=== PATIENT | male | born 1960 | race Caucasian/White ===

== ENCOUNTER 2018-02-17 17:17 | Emergency (ER) | payer BC, SELFPAY ==
[2018-02-17 17:29] VITALS: BP 126/73; PULSE 99; RESP 16; TEMP 38.7; O2SAT 95
--- NOTE | 2018-02-17 17:50 | DI.RAD_ITS ---
SYMPTOMS/DIAGNOSIS: COUGH PA AND LATERAL CHEST: There are no prior comparison exams. The heart size is normal. The lungs are mildly hyperinflated but appear clear. No infiltrate, effusion or pneumothorax is seen. No mass is identified. Surgical clips are seen in the upper abdomen. Degenerative changes are noted in the spine. IMPRESSION: Hyperinflation. No acute abnormality.
--- NOTE | 2018-02-17 18:21 | NUR.NOTE ---
Nursing Note: refused meds
--- NOTE | 2018-02-17 18:35 | DI.VRAD_ITS ---
EXAM: XR Chest, 2 Views EXAM DATE/TIME: 02/17/2018 5:50 PM CLINICAL HISTORY: 57 years old, male; Signs and symptoms; Cough; Patient HX: PT indicates weakness TECHNIQUE: XR of the chest, 2 views. COMPARISON: No relevant prior studies available. FINDINGS: No airspace consolidation, pleural effusion or pneumothorax. The cardiomediastinal silhouette is unremarkable. IMPRESSION: No acute findings. Dictated and Authenticated by: Kulwinder Maxwell MD. Ordering:TERA Miner MD
--- NOTE | 2018-02-17 18:49 | W.ED.GENAD ---
Discharge Plan Disposition Patient Disposition: HOME Condition: Fair Discharge Details Chief Complaint: GenMedical Clinical Impression: Influenza A Primary Care Provider: Sharath Shahid ED Provider: Isidra Wilhelm Home Meds and New Rx's Prescriptions: New oseltamivir [Tamiflu] 75 mg capsule 75 mg PO Q12H 5 Days Qty: 10 RF: 0 Continued omega 3,6,9 combination no.7 92 mg (43 mg-22 [id number]) tablet,chewable PO DAILY RF: 0 doxycycline hyclate 100 mg tablet 100 mg PO BID Qty: 14 RF: 0 codeine-guaifenesin 10-100 mg/5 mL liquid 10 ml PO Q6H PRN (Reason: severe cough) Qty: 100 RF: 1 benzonatate [Tessalon Perles] 100 mg capsule 100 mg PO QID PRN (Reason: cough) Qty: 20 RF: 0 ibuprofen [IBU] 600 mg tablet 600 mg PO TID Qty: 30 RF: 1 fluticasone 50 mcg/actuation spray,suspension 2 spray LONNIE DAILY Qty: 16 RF: 0 multivitamin [Daily Multiple] 1 EACH tablet 1 ea PO DAILY RF: 0 triamcinolone acetonide 15 GM cream 15 gm Topical PRN RF: 0 ascorbic acid (vitamin C) [Vitamin C] 500 MG tablet 500 mg PO DAILY RF: 0 epinephrine [EpiPen 2-Be] 0.3 MG/0.3 ML auto-injector 0.3 mg IM PRN RF: 0 fluticasone 16 GM spray,suspension 50 mcg NS PRN RF: 0 Discharge Instructions Instructions: H1N1 Influenza (ED) Additional Instructions: Encourage hydration. Tylenol and/or ibuprofen as needed for discomfort or fever. Please take doxycycline as prescribed by primary care. Tamiflu as prescribed for influenza. If you develop difficulty breathing, shortness of breath, inability to stay high or other new/worsening symptoms please seek care urgently once again. Please follow-up with primary care next week for reevaluation Wash hands frequently. Take care with who you are around as this is very contagious. Stand Alone Forms: Work Release Referrals: Sharath Shahid DO [Primary Care Provider] - Medical Decision Making Patient 57-year-old male, coming by his , with chief complaint of cough, sinus congestion, body aches, fevers and chills. Reports he has been ill since December 24, 2017. States that since then, he has had waxing and waning upper respiratory symptoms. Patient does report a [id number]-[id number] smoking history, states that he quit about 5 years ago. States that he began feeling ill acutely approximately 2 days ago. Denies any GI upset. Was seen by his PCP who was concerned for possible sinus infection and began on Doxycycline. They are also concerned for pneumonia and had requested the patient receive cxr. However, as the patient saw his PCP this afternoon, no availability for outpatient xr was available. He denies SOB or CP. On exam, lungs are clear. Patient appears fatigued and slightly dehydrated. Pulse is 99, patient's temp is 38.7. Primarily concern for influenza given his appearance. However, his primary care who referred him here for a chest x-ray, will also obtain a chest x-ray and rapid flu. Rapid flu is positive. Chest x-ray reviewed by radiologist as below: FINDINGS: No airspace consolidation, pleural effusion or pneumothorax. The cardiomediastinal silhouette is unremarkable. IMPRESSION: No acute findings. Discussed these findings with the patient and his . At this point, I advised that his acute illness seems to be driven from influenza. Unclear as to what is causing his chronic issues. Asked specifically about COPD change in the chest x-ray which were not noted by radiologist. However, we did discuss that he is at high risk for COPD given his smoking history. Encourage hydration. He would like to continue with the doxycycline as prescribed by his primary care provider today for his sinusitis. As the pharmacies are currently closed and he will not be able to pick this up, will give him his first dose here. Patient also be given his first dose of Tamiflu here. Patient is taking an oral medication here. I had initially prescribed Tylenol and ibuprofen to help with the fever but patient declined. Subsequently, the patient's gave him 600 mg of ibuprofen, this was given just prior to time of discharge. Patient remains febrile but prefers to take medications for this at home and is declining medications here. He is requesting first dose of Tamiflu and Doxycycline here as pharmacies are closing. We discussed new/worsening symtpoms and when to seek care urgently once again. All of his questions and concerns were addressed, he is in agreement with this plan. He will f/u with PCP. HPI General Mode of arrival: ambulatory. Date/Time Provider Initiated Documentation: 02/17/18 17:36. Limitations to Documentation: no limitations. Information obtained by: patient and family. History of Present Illness 57 year old M presents to the emergency department with the chief complaint of cough, described as moderate, with intensity rated at 6. Quality is described as aching (body aches), Patient started experiencing this day(s) (2) and it has been constant. No relieving factors improve symptom(s), No exacerbating factors reported . Patient notes cough, diaphoresis, fever/chills and loss of appetite; denies chest pain, headaches, malaise, nausea/vomiting, rash, shortness of breath and syncope. Patient did receive the following treatments prior to arrival, none Related Data Home Medications Medication Instructions Recorded Confirmed ascorbic acid (vitamin C) [Vitamin 500 mg PO DAILY 07/27/17 02/17/18 C] epinephrine [EpiPen 2-Be] 0.3 mg IM PRN 07/27/17 02/17/18 fluticasone 50 mcg NS PRN spray 07/27/17 02/17/18 multivitamin [Daily Multiple] 1 ea PO DAILY 07/27/17 02/17/18 triamcinolone acetonide 15 gm TOPICAL PRN script 07/27/17 02/17/18 omega 3,6,9 combination no.7 92 mg mg PO DAILY tab 11/23/17 02/17/18 (43 mg-22 [id number]) chew tablet benzonatate 100 mg capsule 100 mg PO QID PRN #20 cap 02/17/18 02/17/18 codeine 10 mg-guaifenesin 100 mg/5 10 ml PO Q6H PRN #100 ml 02/17/18 02/17/18 mL oral liquid doxycycline hyclate 100 mg tablet 100 mg PO BID #14 tab 02/17/18 02/17/18 fluticasone 50 mcg/actuation nasal 2 spray LONNIE DAILY #16 gm 02/17/18 02/17/18 spray,suspension ibuprofen 600 mg tablet 600 mg PO TID #30 tab 02/17/18 02/17/18 oseltamivir [Tamiflu] 75 mg PO Q12H 5 Days #10 cap 02/17/18 Previous Rx's Medication Instructions Recorded benzonatate 100 mg capsule 100 mg PO QID PRN #20 cap 02/17/18 codeine 10 mg-guaifenesin 100 mg/5 10 ml PO Q6H PRN #100 ml 02/17/18 mL oral liquid doxycycline hyclate 100 mg tablet 100 mg PO BID #14 tab 02/17/18 fluticasone 50 mcg/actuation nasal 2 spray LONNIE DAILY #16 gm 02/17/18 spray,suspension ibuprofen 600 mg tablet 600 mg PO TID #30 tab 02/17/18 oseltamivir [Tamiflu] 75 mg PO Q12H 5 Days #10 cap 02/17/18 Allergies Allergy/AdvReac Type Severity Reaction Status Date / Time hydromorphone HCl Allergy Intermediate Itching Verified 01/25/18 11:11 [From Dilaudid] General Stated Complaint: GenMedical NANDO: 3 Review of Systems Constitutional Reports as per HPI and Denies headache(s) Eyes Reports as per HPI, Denies eye discharge and Denies irritation ENT Reports as per HPI, Reports otalgia, Denies headache(s), Reports nasal congestion, Reports nasal discharge, Reports sinus pain, Reports sinus pressure and Reports sore throat Cardiovascular Reports as per HPI, Denies chest pain and Denies dyspnea Respiratory Reports chest congestion, Reports cough, Denies hemoptysis, Denies dyspnea, Denies stridor and Denies wheezing Gastrointestinal Reports as per HPI, Denies abdominal pain, Denies change in bowel habits, Denies nausea and Denies vomiting Integumentary/Breasts Reports as per HPI and Denies rash Neurologic Denies headache(s) Allergic/Immunologic Denies wheezing [facility] Medical History nephrolithiasis Surgical History Cholecystectomy Family History Mother No problems noted. Father A-fib Sister No problems noted. Brother No problems noted. Brother No problems noted. Social History household members: spouse lives independently: Yes current occupational status: employed current occupation: [employer] Smoking/Tobacco Use Status: Former Tobacco Use alcohol intake: never substance use type: does not use seatbelt use: always Exam Const General: cooperative, healthy appearing, comfortable, no acute distress, well developed and well groomed Nutritional Appearance: average body habitus and well nourished Orientation: alert and awake [facility] Head: normal to inspection, normocephalic and atraumatic Ears: hearing grossly normal bilaterally, external ears normal and TM's normal bilaterally General nose exam: external nose normal and nares normal Face and sinus: normal facial exam, sinuses nontender and face symmetric Mouth: oral mucosae normal, lip normal, tongue normal, oropharynx normal and moist mucous membranes Teeth and gingiva: dentition normal Throat: posterior oropharynx normal, tonsils normal and uvula midline Eyes General: appearance normal, both eyes and all related structures Neck Neck: normal visual inspection, full ROM, no lymphadenopathy and no meningeal signs Resp Effort & Inspection: normal respiratory effort, able to speak in complete sentences and no respiratory distress Auscultation: clear to auscultation bilaterally, no rales, no rhonchi and no wheezes Cardio Rate: regular rate Rhythm: regular rhythm Heart Sounds: S1 normal and S2 normal Skin General skin exam: no rashes or lesions noted Neuro General: alert and awake Cognition: normal cognition Speech: speech normal Gait: normal gait Psych Appearance: grossly normal and well kempt Mental Status: mental status grossly normal Speech and Movement: speech and movement normal Course Vital Signs Temperature 38.7 C H 02/17/18 17:29 Pulse 99 H 02/17/18 17:29 Respiratory Rate 16 02/17/18 17:29 Blood Pressure 126/73 02/17/18 17:29 Pulse Oximetry 95 02/17/18 17:29 Temperature 38.7 C H 02/17/18 17:29 Pulse 99 H 02/17/18 17:29 Respiratory Rate 16 02/17/18 17:29 Blood Pressure 126/73 02/17/18 17:29 Blood Pressure Position Sitting 02/17/18 17:29 Pulse Oximetry 95 02/17/18 17:29 Oxygen Delivery Method Room Air 02/17/18 17:29 Oxygen Flow Rate 0 02/17/18 17:29 Pain Level 6 02/17/18 17:29 Lab/Test Results Lab/Test Results: 02/17/18 17:32 Nasopharynx Influenza Types A,B Antigen - Final
[2018-02-17 18:50] VITALS: BP 109/63; PULSE 92; RESP 18; TEMP 38.8; O2SAT 99
[2018-02-17 18:53] VITALS: RESP 18
--- NOTE | 2018-02-17 18:53 | ED.GENADUL_ITS ---
Discharge Plan Disposition Patient Disposition: HOME Condition: Fair Discharge Details Chief Complaint: GenMedical Clinical Impression: Influenza A Primary Care Provider: Sharath Shahid ED Provider: Isidra Wilhelm Home Meds and New Rx's Prescriptions: New oseltamivir [Tamiflu] 75 mg capsule 75 mg PO Q12H 5 Days Qty: 10 RF: 0 Continued omega 3,6,9 combination no.7 92 mg (43 mg-22 [id number]) tablet,chewable PO DAILY RF: 0 doxycycline hyclate 100 mg tablet 100 mg PO BID Qty: 14 RF: 0 codeine-guaifenesin 10-100 mg/5 mL liquid 10 ml PO Q6H PRN (Reason: severe cough) Qty: 100 RF: 1 benzonatate [Tessalon Perles] 100 mg capsule 100 mg PO QID PRN (Reason: cough) Qty: 20 RF: 0 ibuprofen [IBU] 600 mg tablet 600 mg PO TID Qty: 30 RF: 1 fluticasone 50 mcg/actuation spray,suspension 2 spray LONNIE DAILY Qty: 16 RF: 0 multivitamin [Daily Multiple] 1 EACH tablet 1 ea PO DAILY RF: 0 triamcinolone acetonide 15 GM cream 15 gm Topical PRN RF: 0 ascorbic acid (vitamin C) [Vitamin C] 500 MG tablet 500 mg PO DAILY RF: 0 epinephrine [EpiPen 2-Be] 0.3 MG/0.3 ML auto-injector 0.3 mg IM PRN RF: 0 fluticasone 16 GM spray,suspension 50 mcg NS PRN RF: 0 Discharge Instructions Instructions: H1N1 Influenza (ED) Additional Instructions: Encourage hydration. Tylenol and/or ibuprofen as needed for discomfort or fever. Please take doxycycline as prescribed by primary care. Tamiflu as prescribed for influenza. If you develop difficulty breathing, shortness of breath, inability to stay high or other new/worsening symptoms please seek care urgently once again. Please follow-up with primary care next week for reevaluation Wash hands frequently. Take care with who you are around as this is very contagious. Stand Alone Forms: Work Release Referrals: Sharath Shahid DO [Primary Care Provider] - Medical Decision Making Patient 57-year-old male, coming by his , with chief complaint of cough, sinus congestion, body aches, fevers and chills. Reports he has been ill since December 24, 2017. States that since then, he has had waxing and waning upper respiratory symptoms. Patient does report a [id number]-[id number] smoking history, states that he quit about 5 years ago. States that he began feeling ill acutely approximately 2 days ago. Denies any GI upset. Was seen by his PCP who was concerned for possible sinus infection and began on Doxycycline. They are also concerned for pneumonia and had requested the patient receive cxr. However, as the patient saw his PCP this afternoon, no availability for outpatient xr was available. He denies SOB or CP. On exam, lungs are clear. Patient appears fatigued and slightly dehydrated. Pulse is 99, patient's temp is 38.7. Primarily concern for influenza given his appearance. However, his primary care who referred him here for a chest x-ray, will also obtain a chest x-ray and rapid flu. Rapid flu is positive. Chest x-ray reviewed by radiologist as below: FINDINGS: No airspace consolidation, pleural effusion or pneumothorax. The cardiomediastinal silhouette is unremarkable. IMPRESSION: No acute findings. Discussed these findings with the patient and his . At this point, I advised that his acute illness seems to be driven from influenza. Unclear as to what is causing his chronic issues. Asked specifically about COPD change in the chest x-ray which were not noted by radiologist. However, we did discuss that he is at high risk for COPD given his smoking history. Encourage hydration. He would like to continue with the doxycycline as prescribed by his primary care provider today for his sinusitis. As the pharmacies are currently closed and he will not be able to pick this up, will give him his first dose here. Patient also be given his first dose of Tamiflu here. Patient is taking an oral medication here. I had initially prescribed Tylenol and ibuprofen to help with the fever but patient declined. Subsequently, the patient's gave him 600 mg of ibuprofen, this was given just prior to time of discharge. Patient remains febrile but prefers to take medications for this at home and is declining medications here. He is requesting first dose of Tamiflu and Doxycycline here as pharmacies are closing. We discussed new/worsening symtpoms and when to seek care urgently once again. All of his questions and concerns were addressed, he is in agreement with this plan. He will f/u with PCP. HPI General Mode of arrival: ambulatory . Date/Time Provider Initiated Documentation: 02/17/18 17:36 . Limitations to Documentation: no limitations . Information obtained by: patient and family . History of Present Illness 57 year old M presents to the emergency department with the chief complaint of cough, described as moderate, with intensity rated at 6. Quality is described as aching (body aches), Patient started experiencing this day(s) (2) and it has been constant. No relieving factors improve symptom(s), No exacerbating factors reported . Patient notes cough, diaphoresis, fever/chills and loss of appetite; denies chest pain, headaches, malaise, nausea/vomiting, rash, shortness of breath and syncope. Patient did receive the following treatments prior to arrival, none Related Data Home Medications Medication Instructions Recorded Confirmed ascorbic acid (vitamin C) [Vitamin 500 mg PO DAILY 07/27/17 02/17/18 C] epinephrine [EpiPen 2-Be] 0.3 mg IM PRN 07/27/17 02/17/18 fluticasone 50 mcg NS PRN spray 07/27/17 02/17/18 multivitamin [Daily Multiple] 1 ea PO DAILY 07/27/17 02/17/18 triamcinolone acetonide 15 gm TOPICAL PRN script 07/27/17 02/17/18 omega 3,6,9 combination no.7 92 mg mg PO DAILY tab 11/23/17 02/17/18 (43 mg-22 [id number]) chew tablet benzonatate 100 mg capsule 100 mg PO QID PRN #20 cap 02/17/18 02/17/18 codeine 10 mg-guaifenesin 100 mg/5 10 ml PO Q6H PRN #100 ml 02/17/18 02/17/18 mL oral liquid doxycycline hyclate 100 mg tablet 100 mg PO BID #14 tab 02/17/18 02/17/18 fluticasone 50 mcg/actuation nasal 2 spray LONNIE DAILY #16 gm 02/17/18 02/17/18 spray,suspension ibuprofen 600 mg tablet 600 mg PO TID #30 tab 02/17/18 02/17/18 oseltamivir [Tamiflu] 75 mg PO Q12H 5 Days #10 cap 02/17/18 Previous Rx's Medication Instructions Recorded benzonatate 100 mg capsule 100 mg PO QID PRN #20 cap 02/17/18 codeine 10 mg-guaifenesin 100 mg/5 10 ml PO Q6H PRN #100 ml 02/17/18 mL oral liquid doxycycline hyclate 100 mg tablet 100 mg PO BID #14 tab 02/17/18 fluticasone 50 mcg/actuation nasal 2 spray LONNIE DAILY #16 gm 02/17/18 spray,suspension ibuprofen 600 mg tablet 600 mg PO TID #30 tab 02/17/18 oseltamivir [Tamiflu] 75 mg PO Q12H 5 Days #10 cap 02/17/18 Allergies Allergy/AdvReac Type Severity Reaction Status Date / Time hydromorphone HCl Allergy Intermediate Itching Verified 01/25/18 11:11 [From Dilaudid] General Stated Complaint: GenMedical NANDO: 3 Review of Systems Constitutional Reports as per HPI and Denies headache(s) Eyes Reports as per HPI, Denies eye discharge and Denies irritation ENT Reports as per HPI, Reports otalgia, Denies headache(s), Reports nasal congestion, Reports nasal discharge, Reports sinus pain, Reports sinus pressure and Reports sore throat Cardiovascular Reports as per HPI, Denies chest pain and Denies dyspnea Respiratory Reports chest congestion, Reports cough, Denies hemoptysis, Denies dyspnea, Denies stridor and Denies wheezing Gastrointestinal Reports as per HPI, Denies abdominal pain, Denies change in bowel habits, Denies nausea and Denies vomiting Integumentary/Breasts Reports as per HPI and Denies rash Neurologic Denies headache(s) Allergic/Immunologic Denies wheezing [facility] Medical History nephrolithiasis Surgical History Cholecystectomy Family History Mother No problems noted. Father A-fib Sister No problems noted. Brother No problems noted. Brother No problems noted. Social History household members: spouse lives independently: Yes current occupational status: employed current occupation: [employer] Manager Smoking/Tobacco Use Status: Former Tobacco Use alcohol intake: never substance use type: does not use seatbelt use: always Exam Const General: cooperative, healthy appearing, comfortable, no acute distress, well developed and well groomed Nutritional Appearance: average body habitus and well nourished Orientation: alert and awake [facility] Head: normal to inspection, normocephalic and atraumatic Ears: hearing grossly normal bilaterally, external ears normal and TM's normal bilaterally General nose exam: external nose normal and nares normal Face and sinus: normal facial exam, sinuses nontender and face symmetric Mouth: oral mucosae normal, lip normal, tongue normal, oropharynx normal and moist mucous membranes Teeth and gingiva: dentition normal Throat: posterior oropharynx normal, tonsils normal and uvula midline Eyes General: appearance normal, both eyes and all related structures Neck Neck: normal visual inspection, full ROM, no lymphadenopathy and no meningeal signs Resp Effort & Inspection: normal respiratory effort, able to speak in complete sentences and no respiratory distress Auscultation: clear to auscultation bilaterally, no rales, no rhonchi and no wheezes Cardio Rate: regular rate Rhythm: regular rhythm Heart Sounds: S1 normal and S2 normal Skin General skin exam: no rashes or lesions noted Neuro General: alert and awake Cognition: normal cognition Speech: speech normal Gait: normal gait Psych Appearance: grossly normal and well kempt Mental Status: mental status grossly normal Speech and Movement: speech and movement normal Course Vital Signs Temperature 38.7 C H 02/17/18 17:29 Pulse 99 H 02/17/18 17:29 Respiratory Rate 16 02/17/18 17:29 Blood Pressure 126/73 02/17/18 17:29 Pulse Oximetry 95 02/17/18 17:29 Temperature 38.7 C H 02/17/18 17:29 Pulse 99 H 02/17/18 17:29 Respiratory Rate 16 02/17/18 17:29 Blood Pressure 126/73 02/17/18 17:29 Blood Pressure Position Sitting 02/17/18 17:29 Pulse Oximetry 95 02/17/18 17:29 Oxygen Delivery Method Room Air 02/17/18 17:29 Oxygen Flow Rate 0 02/17/18 17:29 Pain Level 6 02/17/18 17:29 Lab/Test Results Lab/Test Results: 02/17/18 17:32 Nasopharynx Influenza Types A,B Antigen - Final
[2018-02-17] MEDS: Oseltamivir 75 MG CAP PO (19:01)
[2018-02-17] MEDS: Acetaminophen 500 MG TAB 1000 MG PO (19:01)
[2018-02-17] MEDS: Doxycycline Hyclate 100 MG CAP PO (19:01)
[2018-02-17 19:15] VITALS: BP 110/70; PULSE 90; RESP 22; TEMP 39.5; O2SAT 99
== END 2018-02-17 19:18 | disposition home or self-care (01) ==
PROVIDERS: Emergency Provider Physician Assistant; PCP Family Medicine
DX: J10.1 Influenza due to other identified influenza virus with other respiratory manifestations (principal)
CPT/HCPCS: 87449; 99283; 71046

== ENCOUNTER 2018-05-25 14:52 | Outpatient (CLI) | payer BC, SELFPAY ==
[2018-05-25 15:27] LABS: HGB 14.2 g/dL (13.5-17.5); Mean Corpuscular Volume 90.7 fL (80-95); Mean Platelet Volume 9.5 fL (8.0-11.0); Platelet Count 224 x1000/uL (130-400); RBC 4.74 m/cumm (4.50-6.00); RBC Distribution Width 13.9 % (11.8-14.1)
[2018-05-25 15:59] LABS: Iron 91 ug/dL (50-175); Total Iron Binding Capacity 322 ug/dL (250-450); Transferrin Sat 28 % (20-55)
[2018-05-25 16:01] LABS: ALT 35 U/L (12-78); AST 24 U/L (15-37); Albumin 3.9 g/dL (3.4-5.0); Alkaline Phosphatase 106 U/L (46-116); Anion Gap 9.3 mmol/L (3-11); BUN 24 mg/dL (7-18); Bilirubin, Total 0.3 mg/dL (0.2-1.0); CO2 26.7 mmol/L (21.0-32.0); CREATININE 0.95 mg/dL (0.70-1.30); Calcium 9.4 mg/dL (8.5-10.1); Chloride 103 mmol/L (98-107); Cholesterol 169 mg/dL (50-200); Glucose 82 mg/dL (70-100); HDL Cholesterol 60 mg/dL (40-60); LDL CHOLESTEROL 96 mg/dL (<100); Potassium 4.3 mmol/L (3.5-5.1); Sodium 139 mmol/L (136-145); Total Protein 7.4 g/dL (6.4-8.2); Triglyceride 78 mg/dL (30-150)
[2018-05-25 16:31] LABS: TSH (W/Ref FT4) 0.64 uIU/mL (0.358-3.74); Vitamin B12 853 pg/mL (193-986)
[2018-05-26 12:55] LABS: Hepatitis C Ab w Rflx HCV PCR Negative (NEGAT)
== END 2018-05-25 15:12 ==
PROVIDERS: PCP Family Medicine; Visit Provider Family Medicine
DX: R53.83 Other fatigue (principal); Z13.220 Encounter for screening for lipoid disorders; Z11.59 Encounter for screening for other viral diseases
CPT/HCPCS: 36415; 80053; 80061; 83721; 85027; 86803; 82607; 83540; 83550; 84443

== ENCOUNTER 2018-05-25 14:54 | Outpatient (REF) | payer BC, SELFPAY | END 2018-05-25 15:14 | LOC: LBN 14:54 | PROVIDERS: PCP Family Medicine; Visit Provider Internal Medicine | DX: J42 Unspecified chronic bronchitis (principal) | CPT/HCPCS: 87077; 87070; 87205 ==

== ENCOUNTER 2018-12-20 14:52 | Outpatient (CLI) | payer BC, SELFPAY ==
--- NOTE | 2018-12-20 12:25 | DI.RAD_ITS ---
EXAM: XR CHEST 2V PA LATERAL INDICATION: Cough and rhonchi on exam J40. COMPARISON: XR CHEST 2V PA LATERAL from 02/17/2018 TECHNIQUE: 2D digital imaging was performed. FINDINGS: The heart and pulmonary vasculature are within normal limits. The lungs are clear. The lungs are hyperinflated with flattened diaphragms most consistent with COPD. No effusions or pneumothoraces are identified. Degenerative changes are seen in the spine. IMPRESSION: No acute pulmonary process.
== END 2018-12-20 15:12 ==
PROVIDERS: PCP Family Medicine; Visit Provider Family Medicine
DX: R05 Cough (principal); J98.8 Other specified respiratory disorders; J40 Bronchitis, not specified as acute or chronic; J44.9 Chronic obstructive pulmonary disease, unspecified
CPT/HCPCS: 71046

== ENCOUNTER 2019-01-05 01:43 | Outpatient (CLI) | payer BC, SELFPAY ==
[2019-01-05] MEDS: Inhaler, Assist Device 1 EACH MC (11:46)
[2019-01-05] MEDS: Albuterol HFA 18 GM 200 PUFF INH IH (11:47)
--- NOTE | 2019-01-05 12:14 | PFT_ITS ---
PULMONARY FUNCTION TEST REPORT DATE OF SERVICE: January 05, 2019 REQUESTING PROVIDER: Sharath Shahid D.O. Spirometry shows very severe obstructive airways disease with significant bronchodilator response. Lung volumes show no evidence of restriction. There is moderate hyperinflation and air trapping. Diffusion capacity severely reduced, even when corrected to alveolar volume. Airways resistance elevated. IMPRESSION: Very severe obstructive airways disease with significant bronchodilator response. This is associated with moderate hyperinflation and air trapping and severe diffusion defect. Clinical correlation recommended. JEANNIE/landry D/
== END 2019-01-05 02:03 ==
PROVIDERS: PCP Family Medicine; Visit Provider Family Medicine
DX: R05 Cough (principal); R06.09 Other forms of dyspnea; Z87.891 Personal history of nicotine dependence
CPT/HCPCS: 94060; 94150; 94726; 94729

== ENCOUNTER 2019-04-05 11:22 | Outpatient (REF) | payer BC, SELFPAY | END 2019-04-05 11:42 | LOC: LBN 11:22 | PROVIDERS: PCP Family Medicine; Visit Provider Family Medicine | DX: J18.9 Pneumonia, unspecified organism (principal) | CPT/HCPCS: 87449 ==

== ENCOUNTER 2019-04-11 16:22 | Outpatient (REF) | payer BC, SELFPAY ==
[2019-04-12 19:26] LABS: Legionella Ag Detection Urine Negative (Negative)
== END 2019-04-11 16:42 ==
LOC: LBN 16:22
PROVIDERS: PCP Family Medicine; Visit Provider Family Medicine
DX: J18.9 Pneumonia, unspecified organism (principal)
CPT/HCPCS: 87449

== ENCOUNTER 2019-05-03 12:50 | Outpatient (CLI) | payer BC, SELFPAY ==
--- NOTE | 2019-05-03 03:04 | DI.CT_ITS ---
EXAM: CT CHEST W CLINICAL HISTORY: KNOWN PNEUMONIA, R/O UNDERLYING MASS TECHNIQUE: CT examination of the chest was performed with a bolus infusion of 70 cc of Omnipaque 350 . COMPARISON: XR CHEST 2V PA LATERAL from 02/17/2018 XR CHEST 2V PA LATERAL from 12/20/2018 XR CHEST 2VW (D) from 04/04/2019 FINDINGS: Images obtained through the upper abdomen show unremarkable appearance of visualized portions of the liver, spleen, pancreas, adrenals, and kidneys. Note is made of a prior cholecystectomy. There is severe predominantly central lobular emphysema. There is no mediastinal or hilar adenopathy. No evidence of pulmonary embolic disease or other major vascular abnormality of the mediastinum. No pleural effusion seen. Tracheobronchial tree appears inta ct. There are linear radiodensities in the right lung base consistent with scarring. There is some volum e loss of the left lower lobe with a pleural-based mass-like radiodensity noted at the posterior pleu ral surface measuring up to about 6 x 3 cm in diameter with irregular border. IMPRESSION: The findings as described may represent an area of consolidation and/or atelectasis. The patient had a patchy area of consolidation seen in this area on prior chest film of April 04. The possibil ity of underlying pulmonary neoplasm is not excluded on the basis of this examination. I would sugge st that a follow-up chest CT be obtained following treatment and if the findings do not resolve promp tly additional evaluation with PET-CT or tissue sampling should be considered.
[2019-05-03 12:42] LABS: CREATININE 1.03 mg/dL (0.70-1.30)
[2019-05-03] MEDS: Omnipaque 350 MG/ML 100 ML BTL IJ (13:17)
== END 2019-05-03 13:10 ==
PROVIDERS: PCP Family Medicine; Visit Provider Family Medicine
DX: J18.9 Pneumonia, unspecified organism (principal); J43.8 Other emphysema; J98.4 Other disorders of lung
CPT/HCPCS: 71260; 82565; J3490

== ENCOUNTER 2020-04-03 19:14 | Outpatient (REF) | payer BC, SELFPAY ==
[2020-04-04 14:47] LABS: COVID-19 RT-PCR UVMMC Result Negative (Negative)
== END 2020-04-03 19:15 | disposition home or self-care (01) ==
LOC: LBN 19:14
PROVIDERS: PCP Family Medicine; Visit Provider Physician Assistant
DX: Z20.822 Contact with and (suspected) exposure to COVID-19 (principal); J02.9 Acute pharyngitis, unspecified
CPT/HCPCS: U0003; 87070

== ENCOUNTER 2020-09-07 13:28 | Outpatient (CLI) | payer BC, SELFPAY ==
--- NOTE | 2020-09-07 13:15 | DI.RAD_ITS ---
Exam(s) XR CHEST 2V PA LATERAL EXAM: XR CHEST 2V PA LATERAL CLINICAL HISTORY: Dyspnea in context emphysema,R06.00;Fvjem-[id number] deficiency,E88.01 TECHNIQUE: 2D digital imaging was performed. COMPARISON: CR XR CHEST 2V PA LATERAL from 12/20/2018 FINDINGS: MEDIASTINUM: Normal. HEART: Normal. PULMONARY VASCULATURE: Normal. LUNGS: Clear. The lungs are hyperinflated with flattened diaphragms consistent with underlying COPD. PLEURAL SPACE: No pleural effusion or pneumothorax. BONE:Within normal limits for the patient's age. OTHER FINDINGS:Normal. IMPRESSION: No acute pulmonary findings. DATA REPOSITORY: RADIATION DOSE DELIVERED:
--- OUTSIDE RECORDS SUMMARY | 2020-09-07 13:33 | XMS_ITS ---
:1960 External Reference #:[id number] Author Care Team Providers Name Role Phone Clarenceparker Primary Care Provider Unavailable Allergies None recorded. Medications Name Status Start Date Stop Date ? ? amoxicillin 875 mg-potassium clavulanate Active ? Not available 125 mg tablet Anoro Ellipta 62.5 mcg-25 mcg/actuation Active ? Not available powder for inhalation azithromycin 250 mg tablet Active ? Not a vailable doxycycline hyclate 100 mg capsule Active ? Not available doxycycline hyclate 100 mg tablet Active ? Not available epinephrine 0.3 mg/0.3 mL injection, Active ? Not available auto-injector Flovent HFA 110 mcg/actuation aerosol Active ? Not available inhaler fluticasone propionate 50 mcg/actuation Active ? Not available nasal spray,suspension Guaiatussin AC 10 mg-100 mg/5 mL oral Active ? Not available liquid levofloxacin 500 mg tablet Active ? Not a vailable montelukast 10 mg tablet Active ? Not rachel ilable mupirocin 2 % topical ointment Active ? N ot available prednisone 20 mg tablet Active ? Not avai lable sulfamethoxazole 800 mg-trimethoprim 160 Active ? Not available mg tablet Symbicort 160 mcg-4.5 mcg/actuation HFA Active ? Not available aerosol inhaler triamcinolone acetonide 0.025 % topical Active ? Not available cream triamcinolone acetonide 0.1 % topical Active ? Not available cream valacyclovir 500 mg tablet Active ? Not a vailable Ventolin HFA 90 mcg/actuation aerosol Active ? Not available inhaler Problems Name Status Onset Date Source ? Staphylococcal Infection of Skin Active 06/20/2019 ? Spasm Active 06/20/2019 ? Eruption Active 06/20/2019 ? Increased Frequency of Urination Active 06/20/2019 ? Pneumonia Active 06/29/2019 ? Pulmonary Emphysema Active 06/29/2019 ? Procedures None recorded. Results Lab Results None recorded. Past Encounters 11/02/2019 [id number]-[id number]-Oxbzuolrsrb Deficiency Madonna Greene, [place]: [address] [facility], [place] [address], Ph. 07/26/2019 Pulmonary Emphysema; Pruritic Rash; Nanda min D Deficiency Madonna Greene, [place]: [address] [facility], [place] [address], Ph. [phone] 06/22/2019 Eruption; Pulmonary Emphysema Madonna Greene, [place]: [address] [place] [address], [place] [address], Ph. 06/09/2019 Spasm; Increased Frequency of Urination; Eruption Madonna Greene, [place]: [address] [place] [address], [place] [address], Ph. 05/05/2019 Pulmonary Emphysema; Pneumonia Madonna Greene, [place]: [address] [place] [address], [place] [address], Ph. Social History None recorded. Vaccine List None recorded. Plan of Care Patient Instructions 1. Sacro B- 2 cap 3xday- 10days 2, cream base on legs and back and shoul ders as needed 3. hot and cold- showers repeat 7-10 christi es 1. Magnesium K+ taurate 1 cap in am and mag taurate only at night 2. Immune support- vit C increase during fall months 3. Skin and microflora support : megaspo re switch with therbitoic 4. Vitamin D 2000iu/day- and 20 minutes a day in sun retest in November for winter dosage 5 rash returns get bloodwork- otherwise add on to Vit D in fall 1. viracon 1 cap 3xday for 1 month when finish with Prescription drug antiviral- 2. Broncheze-go back on 1 cap 2xday 3. rub st. J wort oil with licorice and green tea in cream based- 4. Vitamin C- 2000mg 3xday 5. Zinc- 30mg 1 cap 3xday for 2 weeks th en 1 cap/day 1. Broncheze 1 cap 3xday for mainte nacne 2. pulmonolgy visit reports sent to me 3. Smoothies at night packed with nutrie nts -no dairy 4. Hydration in non gatorade electrolyte drink( I suggest using the [employer] brand- ) 5. take potassium magnesium taurate pill s 1 cap 2xday for 1 week then decrease to 1 cap /day 6. Megasporebiotics-instructions on dani le rotate with ther-biotics drink tea before 6:30 not close to bedti me so you do not urinate more than once/night if you are going to bathroom every 2 erna rs during the day you are probably well hydrated and need more potassium/magnesium and/or folate/b12 I prefer to get lab values on you for these first if possible . it will not hurt you to take b12/folat e for several days if you have on hand to see if reduced leg/muscle cramps- 1. We discussed his is getting tested-dt emphysema and immunocompromise dont advise he get tested unless she is postive 2. Broncheaze 2 caps 3xday check Bp ever y 1-2 weeks on this 3. Return to office to discuss bronchial health and if pneumonia has resolved Other herbal support for repiratory heal th can be given but will use only BRoncheaze at this time. PLease Follow up in 2-3 weeks via telemedcine Reminders Provider Appointments None recorded. ? ? Lab None recorded. ? ? Referral None recorded. ? ? Procedures None recorded. ? ? Surgeries None recorded. ? ? Imaging None recorded. ? ? Vitals 07/26/2019 09:00AM ESTABLISHED PATIENT 43 Height Weight BMI Blood Pressure 5 ft 11.5 in 160 lbs 22 kg/m2 104/70 mm[Hg] 05/05/2019 09:30AM NEW PATIENT 58 Height Weight BMI Blood Pressure 5 ft 11.5 in 160 lbs 22 kg/m2 (1) 130/87 mm[H g] (2) 122/88 mm[Hg ]
--- OUTSIDE RECORDS SUMMARY | 2020-09-07 13:33 | XMS_ITS ---
:1960 Author Care Team Providers Name Role Phone MAXX GLORIARAUL ([employer] [facility]) Primary Care Provi mary alice [phone] ELAINE DARLING ND OTHER [phone] ROSANNA HATCH MD [employer] Crewmember [phone] KELLY ADAIR MD Nursing Manager Unavailable DASH SIMMONS MD Nursing Manager [phone] Allergies Code Code System Name Reaction Severity Status Onset Bee Venom Anaphylaxis ? Active ? Protein (Honey Bee) 708209 RxNorm House Dust ? ? Active ? Medications Name Status Start Date Stop Date ? ? Albuterol Sulfate HFA 90 mcg/Actuation aerosol inhaler Active ? Not available Inhale 2 puffs every 6 hours by inhalation route as needed. amoxicillin 500 mg capsule Completed 12/04/200912/14 1 (one) Cap: three times a day amoxicillin 875 mg-potassium Completed ? 05/2019 clavulanate 125 mg tablet Anoro Ellipta 62.5 mcg-25 mcg/actuation powder for inhalation Ac tive ? Not available INHALE 1 PUFF BY MOUTH ONCE DAILY azithromycin 250 mg tablet Completed ? 10/05 Bactrim DS 800 mg-160 mg tablet Active ? Not available Take 1 tablet every 12 hours by oral route for 10 days. benzonatate 200 mg capsule Completed 04/18/201503/03 1 (one) Capsule Capsule: three times daily, as needed Celebrex 200 mg capsule Completed 08/06/2011 08/06/19 12 1 (one) Capsule: daily cephalexin 500 mg capsule Active ? Not av ailable 1 Capsule 4 times per day for 10 days cephalexin 500 mg tablet Completed 01/28/2017 018 1 Tablet: 3 times a day doxycycline hyclate 100 mg Completed ? 10/05 capsule doxycycline hyclate 100 mg tablet Active ? Not available TAKE ONE TABLET BY MOUTH TWICE A DAY epinephrine 0.3 mg/0.3 mL injection, auto-injector Active ? Not available Take as needed by injection route. Flovent HFA 110 mcg/actuation aerosol inhaler Active ? Not available INHALE TWO PUFFS BY MOUTH TWICE A DAY fluticasone propionate 50 Active ? Not av ailable mcg/actuation nasal spray,suspension garlic Active ? Not available 1 qd garlic oil 1,000 mg capsule Completed 03/23/200801/10 1 (one) Capsule: daily Guaiatussin AC 10 mg-100 mg/5 Completed ? mL oral liquid hydrocodone 5 mg-acetaminophen 325 mg tablet Completed 07/201212/15/2012 1-2 Tablet: every four to six hours as needed hydromorphone 2 mg tablet Completed 12/15/20122012 1 Tablet: every four hours, as needed ibuprofen 600 mg tablet Active ? Not avai lable TAKE ONE TABLET BY MOUTH THREE TIMES A DAY ibuprofen 800 mg tablet Completed 12/15/2012 12/16/19 13 1 Tablet: every eight hours as needed indomethacin 50 mg capsule Completed 08/07/201612/26 1 (one) Capsule Capsule: bid - twice daily as needed Levaquin 750 mg tablet Completed 01/14/2017 7 1 (one) Tablet: qd - daily levofloxacin 500 mg tablet Active ? Not a vailable 1 (one) Tablet Tablet: qd - daily Lidocaine Viscous 2 % mucosal solution Completed 4 02/28/2014 1 (one) teaspoon: three times daily, as needed montelukast 10 mg tablet Active ? Not rachel ilable TAKE ONE TABLET BY MOUTH EVERY DAY IN THE EVENING multivitamin Active ? Not available mupirocin 2 % topical ointment Active ? N ot available APPLY TWO TIMES A DAY TO LESIONS ON BACK Nicoderm CQ 14 mg/24 hr daily transdermal patch Completed 02/06/2014 02/20/2014 1 (one) Patch 24HR: daily Nicoderm CQ 21 mg/24 hr daily transdermal patch Completed 02/06/2014 08/15/2014 1 (one) Patch 24HR Patch 24HR: daily Nicoderm CQ 7 mg/24 hr daily transdermal patch Completed 1 02/20/2014 1 (one) Patch 24HR: daily omega 3,6,9 combination no.7 92 mg (43 mg-22 [id number]) chew tablet Active ? Not available Take every day by oral route. [place] 3-6-9 Active ? Not available 1 qd omeprazole 20 mg capsule,delayed release Completed 012 12/15/[address]: daily prednisone 20 mg tablet Active ? Not avai lable 2 tablets Tablet: qd - daily for 5 days prednisone 50 mg tablet Completed 01/28/2017 02/16/19 18 1 Tablet: daily Probiotic Active ? Not available 1 qd Prolastin-C 1,000 mg (+/-)/20 Active ? N ot available mL intravenous solution Protonix 40 mg tablet,delayed release Completed 12/11/2008 12/11/2008 1 (one) Tablet DR: daily Symbicort 160 mcg-4.5 Completed ? 10/06/2019 mcg/actuation HFA aerosol inhaler tamsulosin 0.4 mg capsule Completed 06/18/20162016 1 Capsule Capsule: daily Tessalon Perles 100 mg capsule Completed 02/06/2014 0 02/28/2014 1 (one) Capsule: at bedtime, as needed triamcinolone acetonide 0.025 % Active ? Not available topical cream triamcinolone acetonide 0.1 % Active ? No t available topical cream valacyclovir 500 mg tablet Active ? Not a vailable Ventolin HFA 90 mcg/actuation Active ? No t available aerosol inhaler Vitamin C 500 mg tablet Active ? Not avai lable Take every day by oral route. Vitamins B Complex tablet Completed 03/23/20082013 1 (one) Tablet: daily Zofran 4 mg tablet Completed 12/15/2012 12/15/2012 1 Tablet: every 12 hours as needed Problems Name Status Onset Date Source ? Congestion of Nasal Sinus Unknown 06/16/2019 ? Pneumonia Active 06/16/2019 ? Pulmonary Emphysema Active 06/16/2019 ? Chronic Obstructive Lung Disease Active 06/16/2019 ? Fever with Chills Active 06/16/2019 ? Methicillin Resistant Staphylococcus Active ? History Aureus Infection Herpes Simplex Active ? History Gout Active ? History Nicotine Dependence Active ? History Acute Sinusitis Active ? History Acute Maxillary Sinusitis Active ? Histor y Acute Ethmoidal Sinusitis Active ? Histor y Pharyngitis Active ? History Sinusitis Active ? History Tracheobronchitis Active ? History Chronic Constipation Active ? History Urinary Tract Obstruction Active ? Histor y Hyperplasia of Prostate Active ? History Actinic Keratosis Active ? History Backache Active ? History Dyspnea Active ? History Cough Active ? History Lower Urinary Tract Symptoms Active ? His tory Imaging of Gastrointestinal Tract Active ? History Abnormal Adult Health Examination Active ? History Allergy to Insect Protein Active ? Histor y Benign Lipomatous Tumor Active ? History Procedure by Method Active ? History Cellulitis of Left Upper Limb Active ? Hi story Procedures Date Name Performed by ? 02/09/1979 Cholecystectomy Information not avai lable ? Esophagogastroduodenoscopy Information n ot available Notes: Many years ago. ? Colonoscopy Information not avai lable ? Hernia Repair Information not avai lable Notes: [1970's] 06/16/2019 CT, Chest, W/o Contrast [facility] Radiology (Internal) [address] [place] [address] (Work Place) 07/14/2019 LDCT, Chest, for Lung Cancer Screening [facility] Radiology (Internal) [address] [place] [address] (Work Place) 10/26/2019 XR, Chest, 2 View [facility] Radiology (Internal) [address] [place] [address] (Work Place) Results Lab Results Date Name Specimen Result Interpretation Description Value Range Status Address ? 04/04/2020 CBC W/ BLD High Wbc 11.6 10*3/uL 5.0-10.0 Final [place] Auto Diff 10*3/uL [facility] L ab (Internal) : [address] ? ? BLD ? Rbc 5.38 10*6/uL 4.60-6.00 Final N orth 10*6/uL [facility] L ab (Internal) : [address] ? ? BLD ? Hgb 16.3 g/dL 14.0-18.0 Final Nort h g/dL [facility] L ab (Internal) : [address] ? ? BLD ? Hct 50.3 % 41.0-51.0 Final [facility] L ab (Internal) : [address] ? ? BLD ? Mcv 93.5 fL 80.0-96.0 Final [facility] (Internal) : [address] ? ? BLD ? Mch 30.3 pg 26.0-32.0 Final [facility] pg [facility] L [facility] (Internal) : [address] ? ? BLD ? Mchc 32.4 g/dL 31.0-35.0 Final Nort [facility] g/dL [facility] L [facility] (Internal) : [address] ? ? BLD ? Rdw 13.5 % 11.5-14.5 Final [facility] % [facility] (Internal) : [address] ? ? BLD ? Plt 218 10*3/uL 130-450 Final Nort h 10*3/uL [facility] L [facility] (Internal) : [address] 04/04/2020 BMP, Serum S ? g/r 89 mg/dL 74-106 Final [place] or Plasma mg/dL [facility] L [facility] (Internal) : [address] ? ? S High Bun 23 mg/dL 9-20 Final [place] mg/dL [facility] L [facility] (Internal) : [address] ? ? S ? Crea 0.90 mg/dL 0.66-1.25 Final Nor th mg/dL [facility] L [facility] (Internal) : [address] ? ? S ? Ca 9.6 mg/dL 8.4-10.2 Final [facility] mg/dL [facility] L [facility] (Internal) : [address] ? ? S ? Na 139 mmol/L 137-145 Final [facility] mmol/L [facility] L [facility] (Internal) : [address] ? ? S ? K 4.5 mmol/L 3.5-5.1 Final [facility] mmol/L [facility] L [facility] (Internal) : [address] t ? ? S ? Cl 101 mmol/L 98-107 Final [place] mmol/L [facility] L [facility] (Internal) : [address] ? ? S ? Tco2 29.0 mmol/L 22.0-30.0 Final No rth mmol/L [facility] L [facility] (Internal) : [address] 04/04/2020 CRP, High S High Rcrp 1.23 mg/dL 0.10-0.30 [facility] Sensitivit mg/dL Countr y y, Serum Hospital Lab or Plasma (Employee Adviser al): [address] 04/04/2020 Differenti BLD ? Polys 62 % 40-75 % Final N orth al, [place] Manual, Hospital Lab Blood (Internal) : [address] ? ? BLD ? Bands 0 % 0-5 % Final [facility] L ab (Internal) : [address] ? ? BLD ? Lymphs 27 % 20-50 % Final [facility] L ab (Internal) : [address] ? ? BLD ? Borden 7 % 2-10 % Final [facility] L ab (Internal) : [address] ? ? BLD ? Eos 3 % 0-6 % Final [facility] L ab (Internal) : [address] ? ? BLD ? Baso 1 % 0-1 % Final [facility] L ab (Internal) : [address] ? ? BLD ? Atyp 0 % ? Final [facility] L ab (Internal) : [address] ? ? BLD ? Plts, adequate adequate Final [facility] Hospital L ab (Internal) : [address] ? ? BLD ? RBC normal normal Final [place] Morpholog [facility] L ab (Internal) : [address] 04/04/2020 Neutrophil BLD ? Anc-manu 7.17 10*3/uL ? Final [place] Count, [facility] Absolute Hospital Lab (Anc), (Internal) : Blood [address] 04/04/2020 Nlr-manual BLD ? Nlr - 2.30 0.00-3.20 Final [facility] Hospital L ab (Internal) : [address] t 11/10/2019 Iga, S ? Iga 178 mg/dL 85-499 Final [facility] th Quantitati mg/dL Countr y ve, Serum Hospita l Lab (Internal) : [address] 10/25/2019 Culture, BLD ? Final microbiology ? Final [place] Blood 1 results [facility] Hospital L ab (Internal) : [address] 10/25/2019 Culture, BLD ? Final microbiology ? Final [place] Blood 2 results [facility] Hospital L ab (Internal) : [address] 10/25/2019 CBC W/ BLD CRITICAL Wbc 26.4 10*3/uL 5.0-10.0 Fin [facility] Auto Diff HIGH 10*3/uL [facility] L ab (Internal) : [address] ? ? BLD ? Rbc 4.77 10*6/uL 4.60-6.00 Final N orth 10*6/uL [facility] L ab (Internal) : [address] ? ? BLD ? Hgb 14.8 g/dL 14.0-18.0 Final Nort h g/dL [facility] L ab (Internal) : [address] ? ? BLD ? Hct 44.5 % 41.0-51.0 Final [facility] L ab (Internal) : [address] ? ? BLD ? Mcv 93.3 fL 80.0-96.0 Final [facility] L ab (Internal) : [address] ? ? BLD ? Mch 31.0 pg 26.0-32.0 Final [place] pg [facility] L ab (Internal) : [address] ? ? BLD ? Mchc 33.3 g/dL 31.0-35.0 Final Nort h g/dL [facility] L ab (Internal) : [address] ? ? BLD ? Rdw 13.4 % 11.5-14.5 Final [facility] L ab (Internal) : [address] ? ? BLD ? Plt 203 10*3/uL 130-450 Final Nort h 10*3/uL [facility] L ab (Internal) : [address] 10/25/2019 CMP, Serum S High g/r 123 mg/dL 74-106 Final [place] or Plasma mg/dL [facility] L ab (Internal) : [address] ? ? S High Bun 21 mg/dL 9-20 Final [place] mg/dL [facility] L ab (Internal) : [address] ? ? S ? Crea 0.90 mg/dL 0.66-1.25 Final Nor th mg/dL [facility] (Internal) : [address] ? ? S ? Ca 9.4 mg/dL 8.4-10.2 Final [facility] mg/dL [facility] (Internal) : [address] ? ? S Low Na 134 mmol/L 137-145 Final [facility] mmol/L [facility] (Internal) : [address] ? ? S ? K 4.5 mmol/L 3.5-5.1 Final [facility] mmol/L [facility] (Internal) : [address] ? ? S ? Cl 99 mmol/L 98-107 Final [facility] mmol/L [facility] (Internal) : [address] ? ? S ? Tco2 26.0 mmol/L 22.0-30.0 Final No rth mmol/L [facility] L [facility] (Internal) : [address] ? ? S ? Tp 7.3 g/dL 6.3-8.2 Final [facility] g/dL [facility] (Internal) : [address] ? ? S ? Alb 4.2 g/dL 3.5-5.0 Final [facility] g/dL [facility] (Internal) : [address] ? ? S ? Tbil 0.7 mg/dL 0.2-1.3 Final [facility] mg/dL [facility] (Internal) : [address] ? ? S ? Alp 88 U/L 38-126 Final [facility] U/L [facility] (Internal) : [address] ? ? S ? Alt 25 U/L 21-72 U/L Final [place] (Sgpt) [facility] (Internal) : [address] ? ? S ? Ast 27 U/L 17-59 U/L Final [place] (Sgot) [facility] Hospital L ab (Internal) : [address] 10/25/2019 EKG Done ? No ? ? ? Nort h by ED [facility] on Hospital L ab recorded. (Employee Adviser al): [address] 10/25/2019 Differenti BLD ? Polys 75 % 40-75 % Final N orth al, [place] [facility], Hospital Lab Blood (Internal) : [address] ? ? BLD ? Bands 2 % 0-5 % Final [facility] Hospital L ab (Internal) : [address] ? ? BLD Low Lymphs 7 % 20-50 % Final [facility] L ab (Internal) : [address] ? ? BLD High Borden 16 % 2-10 % Final [facility] Hospital L ab (Internal) : [address] ? ? BLD ? Eos 0 % 0-6 % Final [facility] L ab (Internal) : [address] ? ? BLD ? Baso 0 % 0-1 % Final [facility] Hospital L ab (Internal) : [address] ? ? BLD ? Atyp 0 % ? Final [facility] Hospital L ab (Internal) : [address] ? ? BLD ? Plts, adequate adequate Final [facility] Hospital L ab (Internal) : [address] ? ? BLD ? RBC normal normal Final [place] Morpholog [facility] y Hospital L ab (Internal) : [address] 10/25/2019 Neutrophil BLD ? Anc-manu 20.30 ? Final [place] Count, al 10*3/uL [facility] Absolute Hospital Lab (Anc), (Internal) : Blood [address] 10/25/2019 Nlr-manual BLD High Nlr - 11.00 0.00-3.20 Final [facility] Hospital L ab (Internal) : [address] 10/25/2019 Lactic S ? La 1.1 mmol/L 0.7-2.1 Final N orth Acid, mmol/L [facility] Blood Hospital L ab (Internal) : [address] 09/26/2019 Alpha-1-An S Low Alpha 1 <58 mg/dL 90-200 [facility] titrypsin Antitryps mg/dL Coun try (Aat), QN, in Hospit al Lab Serum (Internal) : [address] 09/21/2019 Hepatic S ? Tbil 0.5 mg/dL 0.2-1.3 Final N orth Function mg/dL [facility], Hospital L ab Serum (Internal) : [address] ? ? S ? Dbil 0.1 mg/dL 0.0-0.3 Final [place] mg/dL [facility] L ab (Internal) : [address] t ? ? S ? Alp 98 U/L 38-126 Final [place] U/L [facility] L ab (Internal) : [address] t ? ? S ? Alt 30 U/L 21-72 U/L Final [place] (Sgpt) [facility] L ab (Internal) : [address] t ? ? S ? Ast 35 U/L 17-59 U/L Final [place] (Sgot) [facility] L ab (Internal) : [address] t ? ? S ? Ggt 19 U/L 15-73 U/L Final [facility] L ab (Internal) : [address] t ? ? S ? Tp 7.6 g/dL 6.3-8.2 Final [place] g/dL [facility] L ab (Internal) : [address] t ? ? S ? Alb 4.3 g/dL 3.5-5.0 Final [place] g/dL [facility] L ab (Internal) : [address] t 08/16/2019 Methicilli NASAL ? Final microbiology ? Fin al North n results Country Resistant Hospita l Lab Staphyloco (Inter nal): ccus [address], [place] Culture, Nasal 08/01/2019 Alpha-1-An ? No ? ? ? titrypsin observati (Aat) on Phenotype, recorded. Serum 05/09/2017 Fungus, MISC ? Specimen (see note) ? Final [place] Culture, Descripti Count ry Unspecifie on Hospit al Lab d Specimen (Inter nal): [address] ? ? MISC ? Result (see note) ? Final [facility] L ab (Internal) : [address] ? ? MISC ? Report (see note) ? Final [facility] L ab (Internal) : [address] t 05/09/2017 Bacteria N/A ? Final microbiology ? Final [place] Identifica results Count ry tion, Hospital L ab Unspecifie (Inter nal): d Specimen [address] 05/09/2017 sensitivit MISC ? Sens* ? ? Final No rth ies[I] [facility] Hospital L ab (Internal) : [address] 02/04/2017 Venipunctu BLD ? Venpn* ? ? Final N orth re [facility] Hospital L ab (Internal) : [address] 02/04/2017 Neutrophil BLD ? Anc-manu 10.30 ? Final [place] Count, al 10*3/uL [facility] Lab (Anc), (Internal) : Blood [address] 02/04/2017 Differenti BLD High Polys 85 % 40-75 % Final N orth al, [facility] Manual, Hospital Lab Blood (Internal) : [address] ? ? BLD ? Bands 0 % 0-5 % Final [facility] Hospital L ab (Internal) : [address] ? ? BLD Low Lymphs 11 % 20-50 % Final [facility] Hospital L ab (Internal) : [address] ? ? BLD ? Borden 4 % 2-10 % Final [facility] Hospital L ab (Internal) : [address] ? ? BLD ? Eos 0 % 0-6 % Final [facility] Hospital L ab (Internal) : [address] ? ? BLD ? Baso 0 % 0-1 % Final [facility] Hospital L ab (Internal) : [address] ? ? BLD ? Atyp 0 % ? Final [facility] Hospital L ab (Internal) : [address] ? ? BLD ? Plts, adequate adequate Final [place] Est. [facility] Hospital L ab (Internal) : [address] ? ? BLD ? RBC normal normal Final [place] Morpholog [facility] (Internal[facility] : [address] 02/04/2017 CK S Low Cpk 44 U/L 55-170 Final [place] (Creatine U/L [facility] Kinase), Hospital Lab Total, (Internal) : Serum [address] 02/04/2017 BMP, Serum S ? g/r 99 mg/dL 74-106 Final [place] or Plasma mg/dL [facility] L [facility] (Internal) : [address] t ? ? S High Bun 21 mg/dL 9-20 Final [facility] mg/dL [facility] L [facility] (Internal) : [address] ? ? S ? Crea 0.80 mg/dL 0.66-1.25 Final Nor th mg/dL [facility] L [facility] (Internal) : [address] t ? ? S ? Ca 9.0 mg/dL 8.4-10.2 Final [facility] mg/dL [facility] (Internal) : [address] t ? ? S ? Na 138 mmol/L 137-145 Final [place] mmol/L [facility] Hospital L ab (Internal) : [address] t ? ? S ? K 4.2 mmol/L 3.5-5.1 Final [facility] mmol/L [facility] (Internal) : [address] t ? ? S ? Cl 103 mmol/L 98-107 Final [place] mmol/L [facility] Hospital L ab (Internal) : [address] ? ? S ? Tco2 26.0 mmol/L 22.0-30.0 Final No rth mmol/L [facility] (Internal) : [address] 02/04/2017 CBC W/ BLD High Wbc 12.1 10*3/uL 5.0-10.0 Final [place] Auto Diff 10*3/uL [facility] L ab (Internal) : [address] ? ? BLD ? Rbc 4.97 10*6/uL 4.60-6.00 Final N orth 10*6/uL [facility] (Internal) : [address] ? ? BLD ? Hgb 15.0 g/dL 14.0-18.0 Final Nort [facility] g/dL [facility] (Internal) : [address] ? ? BLD ? Hct 45.9 % 41.0-51.0 Final [facility] % [facility] (Internal) : [address] ? ? BLD ? Mcv 92.4 fL 80.0-96.0 Final [facility] Hospital L ab (Internal) : [address] ? ? BLD ? Mch 30.2 pg 26.0-32.0 Final [place] pg [facility] Hospital L ab (Internal) : [address] ? ? BLD ? Mchc 32.7 g/dL 31.0-35.0 Final Nort h g/dL [facility] Hospital L ab (Internal) : [address] ? ? BLD ? Rdw 13.5 % 11.5-14.5 Final [place] % [facility] L ab (Internal) : [address] ? ? BLD ? Plt 213 10*3/uL 130-450 Final Nort h 10*3/uL [facility] L ab (Internal) : [address] 12/26/2016 Streptococ THRT ? Final microbiology ? Fin al [place] cus Group results Countr y a, Hospital L ab Culture, (Interna l): Throat [address] 06/18/2016 Venipunctu BLD ? Venpn* ? ? Final N orth re [facility] L ab (Internal) : [address] 06/18/2016 PSA, Serum S ? PSA, 1.0 NG/mL 0.0-4.0 Final [place] or Plasma Total NG/mL [facility] L ab (Internal) : [address] Past Encounters 10/26/2019 Chronic Obstructive Lung Disease Kelly Adair MD: [address] [place] [address], Ph. 10/06/2019 Chronic Obstructive Lung Disease; Alpha- 1-Antitrypsin Deficiency Kelly Adair MD: [address] [place] [address], Ph. 08/01/2019 Chronic Obstructive Lung Disease; Alpha- 1-Antitrypsin Deficiency Kelly Adair MD: [address] [place] [address], Ph. 07/14/2019 Chronic Obstructive Lung Disease; Ex-smo ker Kelly Adair MD: [address] [place] [address], Ph. 06/16/2019 Tomography - Chest Abnormal; Chronic Obs tructive Lung Disease Kelly Adair MD: [address] [place] [address], Ph. Social History Tobacco Smoking Status Former Smoker Notes: quit Vaccine List Vaccine Type COVID-19, mRNA, LNP-S, PF, 100 mcg/0.5 m L dose 04/25/2020?0.5 mL 05/23/2020?100 mcg influenza, injectable, quadrivalent, pre servative free 01/11/2016?0.5 mL influenza, seasonal, injectable, preserv ative free 12/11/2010?0.5 mL pneumococcal polysaccharide PPV23 07/14/2019?0.5 mL Tdap 07/29/2018 Plan of Care Reminders Provider Appointments None ? ? recorded. Lab None ? ? recorded. Referral None ? ? recorded. Procedures None ? ? recorded. Surgeries None ? ? recorded. Imaging None ? ? recorded. Vitals 10/26/2019 10:30AM Follow Up 30 Height 176.53 cm 10/06/2019 01:00PM Follow Up 30 Height Weight BMI Blood Pressure 176.53 cm 71.8 kg 23 kg/m2 106/69 mm[Hg] 08/01/2019 02:30PM Follow Up 30 Height Weight BMI Blood Pressure 176.53 cm 72.4 kg 23.2 kg/m2 113/63 mm[Hg] 07/14/2019 09:00AM Follow Up 30 Height Weight BMI Blood Pressure 176.53 cm 73 kg 23.4 kg/m2 120/66 mm[Hg] 05/12/2017 Height Weight Blood Pressure 176.53 cm 72.94 kg 126/68 mm[Hg] 05/06/2017 Weight Blood Pressure 72.3 kg 112/76 mm[Hg] 01/28/2017 Blood Pressure 106/74 mm[Hg] 01/14/2017 Weight Blood Pressure 74.3 kg 120/86 mm[Hg] 12/26/2016 Blood Pressure 114/68 mm[Hg] 10/08/2016 Weight Blood Pressure 74.65 kg 106/72 mm[Hg] 08/07/2016 Blood Pressure 108/70 mm[Hg] 06/25/2016 Height Weight Blood Pressure 177.8 cm 74.84 kg 112/72 mm[Hg] 06/24/2016 Weight Blood Pressure 74.84 kg 112/72 mm[Hg] 06/18/2016 Weight Blood Pressure 74.45 kg 116/80 mm[Hg] 03/03/2016 Weight Blood Pressure 71.89 kg 104/62 mm[Hg] 06/25/2015 Weight Blood Pressure 73.48 kg 108/80 mm[Hg] 04/23/2015 Weight Blood Pressure 73.48 kg 108/80 mm[Hg] 04/18/2015 Weight Blood Pressure 74.07 kg 92/58 mm[Hg] 03/19/2015 Weight Blood Pressure 72.35 kg 110/64 mm[Hg] 10/30/2014 Weight Blood Pressure 69.9 kg 114/64 mm[Hg] 08/15/2014 Weight Blood Pressure 69.7 kg 112/70 mm[Hg] 04/10/2014 Weight Blood Pressure 70.81 kg 108/66 mm[Hg] 02/28/2014 Height Weight Blood Pressure 178 cm 67.65 kg 92/64 mm[Hg] 02/06/2014 Weight Blood Pressure 66.27 kg 104/68 mm[Hg] 10/27/2013 Weight Blood Pressure 66.32 kg 92/60 mm[Hg] 06/07/2013 Weight Blood Pressure 65.45 kg 86/50 mm[Hg] 03/29/2013 Height Weight Blood Pressure 177.8 cm 67.63 kg 132/90 mm[Hg] 12/15/2012 Height Weight Blood Pressure 177.8 cm 66.36 kg 106/70 mm[Hg] 06/11/2012 Height Weight Blood Pressure 180.34 cm 68.67 kg 114/72 mm[Hg] 02/02/2012 Weight Blood Pressure 70.17 kg 110/76 mm[Hg] 12/15/2011 Weight Blood Pressure 70.08 kg 102/62 mm[Hg] 08/29/2011 Height Weight Blood Pressure 180.34 cm 73.21 kg 130/80 mm[Hg] 08/06/2011 Height Weight Blood Pressure 180.34 cm 70.22 kg 108/80 mm[Hg] 08/01/2011 Height Weight Blood Pressure 180.34 cm 70.22 kg 104/64 mm[Hg] 03/25/2011 Weight Blood Pressure 68.63 kg 96/54 mm[Hg] 12/11/2010 Height Weight Blood Pressure 180.34 cm 68.54 kg 100/70 mm[Hg] 12/04/2009 Weight Blood Pressure 70.72 kg 124/80 mm[Hg] 02/20/2009 Weight Blood Pressure 73.94 kg 106/70 mm[Hg] 12/11/2008 Weight Blood Pressure 72.12 kg 104/80 mm[Hg] 09/27/2008 Weight Blood Pressure 73.03 kg 110/70 mm[Hg] 07/10/2008 Blood Pressure 110/60 mm[Hg] 06/09/2008 Height Weight Blood Pressure 182.88 cm 78.47 kg 110/66 mm[Hg] 03/27/2008 Height Weight Blood Pressure 182.88 cm 71.67 kg 112/66 mm[Hg]
== END 2020-09-07 13:48 ==
PROVIDERS: PCP Family Medicine; Visit Provider Family Medicine
DX: E88.01 Alpha-1-antitrypsin deficiency (principal); J43.9 Emphysema, unspecified
CPT/HCPCS: 71046

== ENCOUNTER 2020-11-05 16:03 | Outpatient (REF) | payer BC, SELFPAY ==
[2020-11-07 15:45] LABS: COVID-19 RT-PCR UVMMC Result Negative (Negative)
== END 2020-11-05 16:04 | disposition home or self-care (01) ==
LOC: LBO 16:03
PROVIDERS: PCP Family Medicine; Visit Provider Nurse Practitioner
DX: Z20.822 Contact with and (suspected) exposure to COVID-19 (principal); R05 Cough; R06.2 Wheezing
CPT/HCPCS: U0003

== ENCOUNTER 2021-03-22 10:21 | Outpatient (CLI) | payer BC, SELFPAY ==
[2021-03-22 14:10] VITALS: BP 117/87; PULSE 81; RESP 16; TEMP 36.8; O2SAT 95
[2021-03-22 14:51] VITALS: BP 116/78; PULSE 79; RESP 18; TEMP 36.7; O2SAT 94
== END 2021-03-22 10:22 | disposition home or self-care (01) ==
PROVIDERS: PCP Family Medicine; Visit Provider Family Medicine
DX: U07.1 COVID-19 (principal)
CPT/HCPCS: 96365; Q0047

== ENCOUNTER 2021-04-08 12:47 | Outpatient (CLI) | payer BC, SELFPAY ==
--- NOTE | 2021-04-08 12:45 | DI.RAD_ITS ---
Exam(s) XR CHEST 2V PA LATERAL EXAM: XR CHEST 2V PA LATERAL CLINICAL HISTORY: Cough, known emphysema, COVID+ on 03/22/21 R05 COUGH TECHNIQUE: 2D digital imaging was performed. COMPARISON: CR XR CHEST 2V PA LATERAL from 09/07/2020 FINDINGS: MEDIASTINUM: Normal. HEART: Normal. PULMONARY VASCULATURE: Normal. LUNGS: Hyperinflated but clear. PLEURAL SPACE: No pleural effusion or pneumothorax. BONE:Unremarkable for age. IMPRESSION: Emphysematous changes. No acute abnormality.. DATA REPOSITORY: RADIATION DOSE DELIVERED:
== END 2021-04-08 13:07 ==
PROVIDERS: PCP Family Medicine; Visit Provider Family Medicine
DX: R05.8 Other specified cough (principal); Z86.16 Personal history of COVID-19
CPT/HCPCS: 71046

== ENCOUNTER → 2021-06-03 15:48 | Outpatient (CLI) | payer BC, SELFPAY ==
--- NOTE | 2021-06-03 15:45 | DI.RAD_ITS ---
Exam(s) XR CHEST 2V PA LATERAL EXAM: XR CHEST 2V PA LATERAL CLINICAL HISTORY: cough, wheeze, sputum, R06.02, R05 TECHNIQUE: 2D digital imaging was performed of the chest. Three images were obtained. PA and later al views were obtained. COMPARISON: CR XR CHEST 2V PA LATERAL from 04/08/2021 FINDINGS: MEDIASTINUM: Normal. HEART: Normal. PULMONARY VASCULATURE: Normal. LUNGS: Clear. The lungs are hyperinflated with flattened diaphragms consistent with underlying COPD. PLEURAL SPACE: No pleural effusion or pneumothorax. BONE:Within normal limits for the patient's age. OTHER FINDINGS:Normal. IMPRESSION: 1. No acute pulmonary findings. 2. COPD. DATA REPOSITORY: RADIATION DOSE DELIVERED:
== END ==
PROVIDERS: PCP Family Medicine; Visit Provider Nurse Practitioner
DX: R06.02 Shortness of breath (principal); R05.8 Other specified cough; R06.2 Wheezing; J44.9 Chronic obstructive pulmonary disease, unspecified
CPT/HCPCS: 71046

== ENCOUNTER → 2021-10-15 11:11 | Outpatient (CLI) | payer BC, SELFPAY ==
--- NOTE | 2021-10-15 10:45 | DI.RAD_ITS ---
Exam(s) XR RIBS LT W PA LAT CHEST EXAM: XR RIBS LT W PA LAT CHEST CLINICAL HISTORY: Suspected 12th rib fracture R07.81 PLEURODYNIA TECHNIQUE: 2D digital imaging was performed. Six images are obtained. COMPARISON: CR XR CHEST 2V PA LATERAL from 06/03/2021 FINDINGS: MEDIASTINUM: Normal. HEART: Normal. PULMONARY VASCULATURE: Normal. LUNGS: The lungs are hyperinflated with flattened diaphragms consistent with underlying COPD. PLEURAL SPACE: No pleural effusion or pneumothorax. BONE:Within normal limits for the patient's age. LEFT RIBS: Normal. OTHER FINDINGS:Normal. IMPRESSION: 1. No acute pulmonary findings. 2. Unremarkable left ribs. DATA REPOSITORY: RADIATION DOSE DELIVERED:
== END ==
PROVIDERS: PCP Family Medicine; Visit Provider Family Medicine
DX: R07.81 Pleurodynia (principal)
CPT/HCPCS: 71046; 71100

== ENCOUNTER 2022-09-22 15:50 | Outpatient (CLI) | payer BC, SELFPAY ==
[2022-09-22 15:46] LABS: Abs Immature Grans 0.02 10^3/uL (0.0-0.06); Absolute Basophil Count 0.08 10^3/uL (0.0-0.2); Absolute Eosinophil Count 0.22 10^3/uL (0.0-0.7); Absolute Lymphocyte Count 3.12 10^3/uL (1.2-3.4); Absolute Monocyte Count 1.11 10^3/uL (0.1-0.8); Absolute Neutrophil Count 4.96 10^3/uL (1.2-6.7); Basophils % 0.8; ESR 6 mm/hr (0-20); Eosinophils % 2.3; HCT 44.1 % (40.0-50.0); HGB 14.5 g/dL (13.5-17.5); Immature Grans % 0.2; Lymphocytes % 32.8; MCH 29.8 pg (27.0-33.0); MCHC 32.9 % (32.0-36.0); MCV 91 fL (80-95); MPV 8.6 fL (8.0-11.0); Monocytes % 11.7; Neutrophils % 52.2; Platelet Count 274 10^3/uL (130-400); RBC 4.86 10^6/uL (4.36-5.78); RDW 13.1 % (11.8-14.1); RDW-SD 44.1 fL; WBC 9.51 10^3/uL (4.4-10.8)
[2022-09-22 16:29] LABS: ALT 34 U/L (16-63); AST 26 U/L (15-37); Albumin 3.6 g/dL (3.4-5.0); Alkaline Phosphatase 116 U/L (46-116); Anion Gap 7.8 mmol/L (3-11); BUN 24 mg/dL (7-18); Bilirubin, Total 0.3 mg/dL (0.2-1.0); CO2 28.2 mmol/L (21.0-32.0); Chloride 102 mmol/L (98-107); Estimated GFR 84.05 (mL/min/1.73m2); Glucose 85 mg/dL (74-106); Magnesium 1.9 mg/dL (1.8-2.4); Potassium 3.8 mmol/L (3.5-5.1); Sodium 138 mmol/L (136-145); TSH (W/Ref FT4) 0.41 uIU/mL (0.36-3.74); Total Protein 7.6 g/dL (6.4-8.2)
[2022-09-23 18:22] LABS: CRP, High Sensitivity >15.00 mg/L (See Note)
[2022-09-24 10:08] LABS: Lyme Ab w Rflx to Lyme Confirm Negative (Negative)
[2022-09-25 17:45] LABS: Anaplasma phagocytophilum Negative (Negative); B. miyamotoi PCR Negative (Negative); Babesia divergens/MO-1 Negative (Negative); Babesia duncani Negative (Negative); Babesia microti Negative (Negative); Ehrlichia chaffeensis Negative (Negative); Ehrlichia ewingii/canis Negative (Negative); Ehrlichia muris eauclairensis Negative (Negative)
== END 2022-09-22 15:51 | disposition home or self-care (01) ==
LOC: LBO 15:52
PROVIDERS: PCP Family Medicine; Visit Provider Family Medicine
DX: R53.83 Other fatigue (principal); R25.2 Cramp and spasm; T14.8XXA Other injury of unspecified body region, initial encounter; W57.XXXA Bitten or stung by nonvenomous insect and other nonvenomous arthropods, initial encounter
CPT/HCPCS: 36415; 80053; 85652; 86141; 87798; 83735; 84443; 85025; 86618

== ENCOUNTER → 2023-05-01 00:11 | Outpatient (CLI) | payer BC, SELFPAY ==
--- NOTE | 2023-05-01 06:45 | DI.MRI_ITS ---
Exam(s) MR CERVICAL SPINE WO EXAM: MR CERVICAL SPINE WO CLINICAL HISTORY: Chronic neck pain, previous CT showed ARTHRITIS,M54.2 TECHNIQUE: Multiplanar multisequence MRI of the cervical spine was performed without intravenous con trast. COMPARISON: No exams were available for comparison FINDINGS: CERVICOMEDULLARY JUNCTION: Intact with no evidence of cerebellar tonsillar ectopia. No obvious abnor mality of the odontoid process. No evidence of Chiari 1 malformation. CERVICAL SPINAL CORD: There is no abnormal signal in the cervical spinal cord and no evidence of foca l cord atrophy nor focal cord swelling. OSSEOUS:There are no cervical fractures evident. No significant osseous lesions in the cervical vert ebrae. There is minimal straightening of the cervical curvature. INDIVIDUAL LEVELS: C2-3: Normal disc height. No disc herniation nor central canal stenosis. No foraminal stenosis. Lef t facet joint unremarkable. Mild degenerative changes in the right facet joint. No significant fora amy stenosis. C3-4: Normal disc height. No disc herniation or central canal stenosis. There is significant facet arthropathy on the right side. There is moderate foraminal stenosis on the right side. Minimal fora amy stenosis on the left side.No facet arthropathy on the left side. C4-5: Normal disc height. Mild annular bulging but without a prominent disc herniation. Canal dimen sions are lower normal. Degenerative changes noted in the left facet joint; less so in the right fac et joint.No foraminal stenosis on the right side. Moderate foraminal stenosis on the left side. C5-6: This level exhibits moderate disc space narrowing. No disc herniation or central canal stenosi s. Degenerative changes noted in the left facet joint. Also small left-sided Luschka joint osteophy te. There is moderate left-sided foraminal stenosis. On the right side there is less degenerative c hange in the facet joint. Minimal if any significant foraminal stenosis on the right side. C6-7: This level also exhibits moderate-advanced disc space narrowing. Posteriorly there is relative ly symmetrical annular bulging and Luschka joint osteophytes, larger on the left side. Central canal dimensions are lower normal. Facet joints actually appear unremarkable at this level. There is mil d foraminal stenosis on the left side related to the Luschka joint osteophyte. On the right side the re is no significant foraminal stenosis. C7-T1: No disc herniation nor central canal stenosis. No facet arthropathy.No foraminal stenosis. IMPRESSION: 1. There is moderate disc space narrowing at C5-6 and C6-7 levels. There are no significant disc her niations at these levels nor other levels. 2. There is no central spinal canal stenosis. However, there is multilevel asymmetric foraminal sten osis. There is an element of left-sided foraminal stenosis at C4-5, moderate left-sided foraminal st enosis at C5-6, and mild foraminal stenosis on the left side at C6-7 level. 3. Cervical spinal cord appears unremarkable with no evidence of abnormal cord signal and no evidence of focal cord atrophy nor swelling. DATA REPOSITORY:
== END ==
PROVIDERS: PCP Family Medicine; Visit Provider Family Medicine
DX: M54.2 Cervicalgia (principal); R51.9 Headache, unspecified
CPT/HCPCS: 72141

== ENCOUNTER → 2023-05-01 00:13 | Outpatient (CLI) | payer BC, SELFPAY ==
--- NOTE | 2023-05-01 07:00 | DI.MRI_ITS ---
Exam(s) MR BRAIN WO EXAM: MR BRAIN WO CLINICAL HISTORY: daily headaches,r51.9 TECHNIQUE: Multiplanar multisequence MRI of the brain was performed. COMPARISON: No exams were available for comparison FINDINGS: CEREBRAL PARENCHYMA: There is no evidence of intracranial hemorrhage, mass effect, or shift of midline structures. There are no extra-axial fluid collections. Ventricles are not enlarged or shifted. There is no evidence of cerebellar tonsillar ectopia. There is no significant focal signal abnormality in the cerebellar hemispheres nor within the kevyn, m idbrain, and thalami. There are few tiny FLAIR bright foci of signal abnormality in the white matter bilaterally, the large st measuring 3 mm. These nonspecific findings are not associated with hemorrhage, surrounding edema, nor restricted diffusion on DWI. There is no significant focal signal abnormality evident on diffusion imaging to suggest acute ischem ic event. No evidence of microhemorrhages on SWI. PITUITARY GLAND: No mass nor parasellar abnormality. No obvious abnormality in the cavernous sinuses. FLOW VOIDS: The expected flow void are noted. No evidence of obvious aneurysm nor obvious vascular ma lformation. PARANASAL SINUSES: The visualized paranasal sinuses appear unremarkable. No obvious finding ORBITS: No obvious findings. IMPRESSION: There few small FLAIR bright foci in the bilateral white matter measuring up to 3 mm size. Nonspecif ic findings. Possibly related to chronic ischemic change. No evidence of acute intracranial findings. No restricted diffusion. DATA REPOSITORY:
== END ==
PROVIDERS: PCP Family Medicine; Visit Provider Nurse Practitioner Adult Health
DX: R51.9 Headache, unspecified (principal)
CPT/HCPCS: 70551